=== PATIENT | female | born 1995 | race Hispanic/Latino ===

== ENCOUNTER 2020-07-17 17:55 | Inpatient (IN) | payer OTHER, SELFPAY ==
[2020-07-17] VITALS (26 sets, daily range): BP systolic 107–140; BP diastolic 49–99; PULSE 67–99; TEMP 36.9; BMI 30.4
--- NOTE | 2020-07-17 18:50 | LDADM ---
This patient, Frida Wright, was admitted to Labor/Delivery/Recovery 106 on 07/17/20 at 17:55. Plans for labor, pain management and were discussed with patient. Patient/family oriented to hospital policies and general routines including ID bracelet, bed and alarms, visiting hours, pain management, procedures, bathroom and other care routines, personal items, smoking policy, room service/diet and guest tray routines, security routines, and visiting hours. Patient/Family are encouraged to report perceived risks to care and to ask questions if they do not understand what they are told or what they should do. See OBIX for further documentation.
[2020-07-17 18:52] LABS: Basophils Percent Auto 0.2 % (0.2-1.2); Eosinophils Percent Auto 0.3 % (0-4.4); Hematocrit 35.4 % (37.0-47.0); Hemoglobin 11.3 g/dL (12.0-15.0); Immature Granulocyte Absolute 0.05 K/mm3 (0.00-0.031); Immature Granulocyte Percent A 0.4 % (0-0.5); Lymphocytes Percent Auto 16.4 % (18.3-44.2); Mean Corpuscular HGB Conc 31.9 g/dl (32-36); Mean Corpuscular Hemoglobin 26.2 pg (26-34); Mean Corpuscular Volume 81.9 fl (80-100); Mean Platelet Volume 11.5 fl (7.4-10.4); Monocytes Absolute Auto 1.1 K/mm3 (0.1-0.6); Monocytes Percent Auto 7.9 % (2.6-8.5); Neutrophils Absolute Auto 10.5 K/mm3 (1.3-6.7); Neutrophils Percent Auto 74.8 % (45.5-73.1); Platelet Count Result 270 k/mm3 (150-375); Red Blood Count 4.32 M/mm3 (4.2-5.4); Red Cell Distribution Width 14.1 % (11.5-14.5)
[2020-07-17 19:41] LABS: HIV 1/2 Ab P24 Ag Result Negative (Negative)
--- NOTE | 2020-07-17 20:42 | WPDANESEPP ---
Anes - Eval Pre Procedure Procedure: Labor epidural Date/Time: 07/17/20 20:42 Surgeon: dennis Preop Diagnosis: abd pain with contractions Pre Op Diagnosis: Leaking Patient Data Age: 25 Gender: F Height: 5 ft 3 in Weight: 78 kg Last Vital Signs Temp 98.5 F 07/17/20 19:07 Pulse 76 07/17/20 20:30 BP 117/75 07/17/20 20:30 Allergies Allergy/AdvReac Type Severity Reaction Status Date / Time No Known Allergies Allergy Mild Verified 07/17/20 08:19 Home Medications Medication Instructions Recorded Confirmed Type PNV cmb#95-ferrous fumarate-FA 1 tablet PO DAILY 07/13/20 07/13/20 History [] Laboratory Tests 07/17/20 07/17/20 07/17/20 18:42 18:42 18:42 WBC 14.0 K/mm3 H K/mm3 (4.5-10.0) RBC 4.32 M/mm3 M/mm3 (4.2-5.4) Hgb 11.3 g/dL L g/dL (12.0-15.0) Hct 35.4 % L % (37.0-47.0) MCV 81.9 fl fl (80-100) MCH 26.2 pg pg (26-34) MCHC 31.9 g/dl L g/dl (32-36) RDW 14.1 % % (11.5-14.5) Plt Count 270 k/mm3 k/mm3 (150-375) MPV 11.5 fl H fl (7.4-10.4) Immature Gran % (Auto) 0.4 % % (0-0.5) Neut % (Auto) 74.8 % H % (45.5-73.1) Lymph % (Auto) 16.4 % L % (18.3-44.2) [place] % (Auto) 7.9 % % (2.6-8.5) Eos % (Auto) 0.3 % % (0-4.4) Baso % (Auto) 0.2 % % (0.2-1.2) Lymph # (Auto) 2.30 K/mm3 K/mm3 (0.9-3.2) [place] # (Auto) 1.1 K/mm3 H K/mm3 (0.1-0.6) Eos # (Auto) 0.0 K/mm3 K/mm3 (0-0.3) Baso # (Auto) 0.0 K/mm3 K/mm3 (0.0-0.1) Abs Immat Gran (auto) 0.05 K/mm3 H K/mm3 (0.00-0.031) Absolute Neuts (auto) 10.5 K/mm3 H K/mm3 (1.3-6.7) Absolute Nucleated RBC 0.0 K/mm3 K/mm3 (0.0-0.012) Nucleated RBC % 0.0 % % (0.0-0.2) RPR Pending HIV 1&2 Ab/P24 Ag 4thGn Negative (Negative) Blood Type Antibody Screen 07/17/20 18:42 WBC RBC Hgb Hct MCV MCH MCHC RDW Plt Count MPV Immature Gran % (Auto) Neut % (Auto) Lymph % (Auto) [place] % (Auto) Eos % (Auto) Baso % (Auto) Lymph # (Auto) [place] # (Auto) Eos # (Auto) Baso # (Auto) Abs Immat Gran (auto) Absolute Neuts (auto) Absolute Nucleated RBC Nucleated RBC % RPR HIV 1&2 Ab/P24 Ag 4thGn Blood Type B Positive Antibody Screen Negative Patient hx anesthesia problems: none Family hx anesthesia problems: none PMFSH Past Medical History Medical History (Updated 07/17/20 @ 20:43 by Bernaridno Laughlin CRNA) Ovarian cyst Overweight (BMI 25.0-29.9) Family History Family History Grandparent Carcinoma of colon Thyroid disease Social History Social History Smoking status: Never smoker Alcohol intake: never Substance use: never Substance use type: does not use Spiritual care concerns: No Exam Day of Procedure 07/17/20 20:42 Patient weight: normal Neurological: alert and oriented
[2020-07-17] MEDS: LACTATED RINGERS 1,000 ML 125 ML IV CONT (21:40)
[2020-07-17] MEDS: OXYTOCIN 30 UNITS/NS 500 ML 30 UNITS/500 ML BAG IV CONT (21:40)
[2020-07-18] VITALS (91 sets, daily range): BP systolic 102–148; BP diastolic 57–96; PULSE 64–129; RESP 16; TEMP 36.6–37.6; O2SAT 96–100
[2020-07-18] MEDS: fentaNYL CITRATE INJ (*CRX) 100 MCG/2 ML VIAL IV PUSH (01:13)
[2020-07-18] MEDS: LACTATED RINGERS 1,000 ML 125 ML IV CONT ×2 (04:12→06:38)
[2020-07-18] MEDS: SODIUM CHLORIDE 0.9% IV 300 ML 600 ML I-UTERINE (04:22)
--- NOTE | 2020-07-18 09:27 | PM.OBPRVD ---
OB - Delivery Note Procedure Delivery date: 07/18/20 events: Labor Augmentation Intrapartal events: None Induction method: none Delivery augmentation: pitocin Delivery monitor: external FHT, external uterine and internal uterine Route of delivery: Laceration description: Perineal - 2nd Degree Delivery repair: vicryl (2-0) Specimen: No Estimated blood loss (mL): 143 Anesthesia type: Epidural Disposition: floor Baby Date of : 07/18/20 Time of : 09:12 Weeks of gestation at delivery: 38 Infant gender: Male Weight (pounds): 6 Weight (ounces): 9 presentation: vertex position: Right Occiput Anterior Placenta delivery description: Spontaneous cord vessel description: 3 Vessels and Clamped/Cut score one minute: 8 score five minutes: 9
[2020-07-18] MEDS: OXYTOCIN 30 UNITS/NS 500 ML 30 UNITS/500 ML BAG 125 UNITS IV CONT (09:43)
[2020-07-18] MEDS: IBUPROFEN 600 MG TABLET PO ×2 (11:36→18:59)
[2020-07-18] MEDS: BENZOCAINE 20% AER SPR (*SP) 56 GM CAN 1 SPRAY TOPICAL (11:53)
[2020-07-18] MEDS: WITCH HAZEL 40 PADS 1 PAD TOPICAL (11:53)
--- NOTE | 2020-07-18 13:05 | OBPPTRN ---
@ 1212 Patient transferred to post room #282 via W/C. Support person present. Oriented to unit, room, information board, rooming in, admission packet and security measures. Patient verbalizes understanding.
[2020-07-18] MEDS: TETANUS,DIPHTHERIA,AC PERTUSSIS ADULT (0.5 ML) BOOSTRIX IM (19:00)
[2020-07-19 04:45] LABS: Hematocrit 32.5 % (37.0-47.0); Hemoglobin 10.4 g/dL (12.0-15.0)
[2020-07-19] MEDS: IBUPROFEN 600 MG TABLET PO ×3 (04:47→19:49)
[2020-07-19 08:00] VITALS: BP 100/63; PULSE 84; RESP 16; RESP 17; TEMP 36.7; O2SAT 97
[2020-07-19] MEDS: MULTIVIT/MIN/PREN/FOL AC/IRON TABLET 1 TAB PO (08:13)
[2020-07-19] MEDS: DOCUSATE SODIUM 100 MG CAPSULE PO ×2 (08:13→16:52)
--- NOTE | 2020-07-19 09:30 | PM.OBPNVD ---
OB - PN: Subj Subjective Date/time seen: 07/19/20 09:30 Patient comments: no complaints, pain well controlled and other (Lochia similar to menses) [place] baby status: doing well OB - PN: Obj Data Labs CBC & Chem 7: 07/19/20 04:34 Labs: Laboratory Results - last 24 hr 07/19/20 04:34 Hgb 10.4 L Hct 32.5 L OB - PN A/P Plan day: 1 (s/p vaginal delivery, doing well) Plan: routine care Time Spent With Patient Time: Total time spent is greater than 50% in coordination of care (as documented) at patient's floor/unit and/or counseling patient: Exam Const: General: no acute distress GI: Inspection: other (Fundus firm and nontender at umbilicus) GI Palp: Yes Soft to palpation and No Tenderness to palpation present (GI) Extrem: General: no edema
--- NOTE | 2020-07-19 09:31 | PM.OBDSVD ---
DS: Admitting Diagnosis Admitting Diagnosis Admitting Diagnosis: Leaking DS: Discharge Diagnosis Discharge Diagnosis (1) : Code(s): Z34.90 - Encounter for supervision of normal , unspecified, unspecified trimester Status: Acute OB - DS: Summary OB Procedures : None OB Procedures Intrapartum: Spontaneous Vag Delivery OB Procedures: : None Peripartum Data Delivery Method: Natural Vaginal Laceration description: Perineal - 2nd Degree complications: none Status at Discharge Functional status at discharge: independent ambulation Overall status at discharge: patient is progressing back to baseline Time Spent with Patient Time attestation: Total time spent providing and/or coordinating discharge services: Time spent: Less than 30 minutes DS: Data Data Completed and Pending Labs on day of discharge: Labs from last 24 hours 07/19/20 04:34 Hgb 10.4 L Hct 32.5 L Discharge Plan Discharge Attending physician on discharge: Katherine Norwood Consulting providers: Percy Butterfield Discharging Clinician: Katherine Norwood Anticipated Discharge Date/Time: 07/20/20 11:00 Patient Disposition: Home, Self-Care Activity: may shower Diet: regular Patient Instructions: Antibiotic Form Stand Alone Forms: General Discharge Information Follow-up/Referrals: Katherine Norwood MD [Physician] - 4 Weeks Discharge Medications: New ibuprofen 600 mg Tablet 600 mg PO Q6H PRN (Reason: Cramping) Qty: 60 RF: 0 Continued PNV cmb#95-ferrous fumarate-FA [] 28 mg iron- 800 mcg Tablet 1 tablet PO DAILY RF: 0 Date of admission: 07/17/20 17:55 Primary Care Provider: PHYSICIAN,CREAM SEPARATOR OPERATOR Admitting Provider: Katherine Norwood Attending physician on admission: Katherine Norwood
--- NOTE | 2020-07-19 12:00 | PC.NURSE ---
PT introductions made and plan of care discussed per post , pain management, breast feeding, daily care activities. PT verbalized understanding of such care.
[2020-07-19] MEDS: SIMETHICONE 80 MG TAB.CHEW PO (12:46)
--- NOTE | 2020-07-19 15:07 | WPDANLDPN2 ---
Anes-Prog Note L&D Date/Time: 07/19/20 15:07 Comfortable throughout: labor and delivery Neuraxial method: epidural Epidural/Spinal procedure site: clean & non-tender Neuro status: Neuro function grossly intact. Cardiovascular status: normal Respiratory status: normal Airway patency: baseline Mental status: baseline Post-Op hydration status: normal Vital Signs: Last Vital Signs Temp 36.7 C 07/19/20 08:00 Pulse 84 07/19/20 08:00 Resp 17 07/19/20 08:00 BP 100/63 07/19/20 08:00 Pulse Ox 97 07/19/20 08:00 Pain score (VAS): 11/08 Post-procedural complaints: none Patient feedback: Patient satisfied with anesthetic care.
[2020-07-19] MEDS: ACETAMINOPHEN 325 MG TABLET 650 MG PO (16:52)
--- NOTE | 2020-07-19 18:20 | PC.NURSE ---
Patient viewed the discharge video Mother & Baby Care, The First Two Weeks . Patient was given the opportunity and encouraged to ask questions. Patient verbalized understanding of information shared and has been given the mother/baby guide for home reference.
[2020-07-19 20:24] VITALS: BP 118/80; PULSE 98; RESP 18; TEMP 36.8; O2SAT 99
--- NOTE | 2020-07-20 | PC.NURSE ---
Infant to nursery for assessment and weight. Mom would like to sleep and would like infant to remain in nursery until next feeding is due.
--- NOTE | 2020-07-20 02:40 | PC.NURSE ---
Infant returned to mother's room for next feeding.
[2020-07-20] MEDS: IBUPROFEN 600 MG TABLET PO (05:19)
[2020-07-20] MEDS: ACETAMINOPHEN 325 MG TABLET 650 MG PO (05:19)
[2020-07-20 07:15] VITALS: BP 129/82; PULSE 85; RESP 14; TEMP 36.5; O2SAT 98
--- NOTE | 2020-07-20 07:30 | P.PNOB_ITS ---
OB - PN: Subj Subjective Date/time seen: 07/20/20 07:30 Patient comments: no complaints, pain well controlled and other (Lochia similar to menses) [place] baby status: doing well OB - PN: Obj Data Labs CBC & Chem 7: 07/19/20 04:34 OB - PN A/P Plan day: 2 (s/p vaginal delivery, doing well) Plan: routine care, discharge home and other (Follow up in office in 4 weeks) Time Spent With Patient Time: Total time spent is greater than 50% in coordination of care (as documented) at patient's floor/unit and/or counseling patient: Exam Const: General: no acute distress GI: Inspection: other (Fundus firm and nontender below umbilicus) GI Palp: Yes Soft to palpation and No Tenderness to palpation present (GI) Extrem: General: no edema
--- NOTE | 2020-07-20 09:35 | PC.NURSE ---
Consulted with patient, mother reports infant is eagerly feeding without difficulties or discomfort. Observed mother latching using cross cradle, holding breast and guided asymmetrical latch one. was able to latch correctly. nursed eagerly, with steady draws and frequent swallowing noted. Reviewed signs of a correct latch, effective nursing and suck swallow ratio. Infant was able to maintain latch without discomfort to mother. Nipple care reviewed. Reviewed infant feeding cues, frequencies, duration of feedings, feeding elimination flow sheet, and signs of adequate intake. Mother is feeding as required and waking to feed if needed. has had at least 8 effective feedings in the past 24 hours, and is currently meeting outcomes for weight, output, jaundice and feeding frequencies. Mother states she feels confident to continue effective at home. Reviewed transition to breast milk, signs of adequate intake, and engorgement/relief. Instructed to call ICP if intake/output less than required. Reviewed regular medications mother is taking. Information provided per Dilcia. Reviewed community resources on the [facility] website and in the Mom/Baby guide. Information on outpatient services provided. Mother has no further questions at this time.
[2020-07-20] MEDS: MULTIVIT/MIN/PREN/FOL AC/IRON TABLET 1 TAB PO (09:52)
[2020-07-20] MEDS: DOCUSATE SODIUM 100 MG CAPSULE PO (09:52)
[2020-07-20 11:11] LABS: Rapid Plasma Reagin Non-Reactive (NonReactive)
[2020-07-22 12:36] VITALS: BP 136/83; PULSE 98; RESP 20; O2SAT 100
== END 2020-07-20 12:39 | disposition home or self-care (01) | DRG 560 ==
LOC: ANHLDR 19:01 → ANHOB2 07-18 12:14
PROVIDERS: Admitting Provider Obstetrics & Gynecology; Visit Provider Obstetrics & Gynecology
DX: O76 Abnormality in fetal heart rate and rhythm complicating labor and delivery (principal); O70.1 Second degree perineal laceration during delivery; Z3A.38 38 weeks gestation of pregnancy; Z37.0 Single live birth; Z23 Encounter for immunization
CPT/HCPCS: 36415; 85014; 85018; 85025; 86592; 86703; 86850; 86900; 86901; 90471; 90686; 90715; A9270; G0008; G0432; J2590; J2795; J3010; J7030; J7120

== ENCOUNTER 2022-01-24 05:00 | Inpatient (IN) | payer OTHER, SELFPAY ==
[2022-01-24] VITALS (89 sets, daily range): BP systolic 70–188; BP diastolic 39–149; PULSE 68–178; RESP 16–18; TEMP 36.5–36.9; O2SAT 97–100; BMI 33.5
--- OUTSIDE RECORDS SUMMARY | 2022-01-24 05:04 | XMS_ITS | Encounter Summary ---
:1995 Author Reason for Visit OB visit Assessment and Plan 1. Gestational diabetes mellitus Discussion Note: None recorded.Patient educational handouts: No information available. Plan of Care Reminders Provider Appointments Nst 01/25/2022 Nst, , EQ UIP 9:15AM ? Nst 01/28/2022 Nst, , EQUI P 9:15AM ? Ob Routine 01/28/2022 Jumana Hansen, 9:45AM CNM ? 3Hr on or around Angela There se Glucose 03/13/2022 MD [facility] None ? ? recorded. Referral None ? ? recorded. Procedures None ? ? recorded. Surgeries None ? ? recorded. Imaging None ? ? recorded. Medications Name Start Date ? ? FreeStyle Lancets 28 gauge ? TEST FOUR TIMES DAILY AND 1 HOUR AFTER MEALS FreeStyle Lite Meter kit ? TEST FOUR TIMES DAILY AND 1 HOUR AFTER MEALS Humulin N NPH U-100 Insulin (isophane susp) 100 unit/m L subcutaneous ? Inject 6 units by subcutaneous route at bedtime insulin syringe U-100 with needle 1 mL 29 gauge x 7/16 ? DIRECTED OneTouch Delica Plus Lancet 33 gauge ? OneTouch Verio Flex Meter ? OneTouch Verio test strips ? USE FOUR TIMES DAILY FASTING BREAKFAST LUNCH DINNER ? Medications A
--- OUTSIDE RECORDS SUMMARY | 2022-01-24 05:04 | XMS_ITS | Encounter Summary ---
:1995 Author Reason for Visit None recorded. Assessment and Plan 1. Gestational diabetes mellitus , class A>1< ? non-stress test Discussion Note: None recorded.Patient educational handouts: No [...] recorded. Surgeries None ? ? recorded. Imaging Non-stress 01/21/2022 Gayle wasserman Test Medications Name Start Date ? ? FreeStyle [...] test strips ? USE FOUR TIMES DAILY FASTI
--- OUTSIDE RECORDS SUMMARY | 2022-01-24 05:04 | XMS_ITS | Encounter Summary ---
:1995 Author Reason for Visit None recorded. Assessment and Plan 1. Poor growth affecting m anagement ? US, obstetric, follow-up ? US, obstetric, biophysical profile + non-stress test Discussion Note: None recorded.Patient educational handouts: No information available. Plan of Care Reminders Provider Appointments Nst 01/25/2022 Nst, , EQ UIP 9:15AM ? Nst 01/28/2022 Nst, , EQUI P 9:15AM ? Ob Routine 01/28/2022 Jumana E 9:45AM SULEIMAN Hansen ? 3Hr Glucose on or around Angela Vandana 03/13/2022 MD [facility] None ? ? recorded. Referral None ? ? recorded. Procedures None ? ? recorded. Surgeries None ? ? recorded. Imaging US, 01/21/2022 [facility], Follow-up ? US, 01/21/2022 [facility], Biophysical Profile + Non-stress Test Medications Name Start Date ? ? FreeStyle Lancets 28 gauge ? TEST FOUR TIMES DAILY AND 1 HOUR AFTER MEALS FreeStyle Lite Meter kit ? TEST FOUR TIMES DAILY AND 1 HOUR AFTER MEALS
--- OUTSIDE RECORDS SUMMARY | 2022-01-24 05:04 | XMS_ITS | Encounter Summary ---
[...] Surgeries None ? ? recorded. Imaging Non-stress 01/18/2022 Gayle wasserman Test Medications Name Start Date [...]
--- OUTSIDE RECORDS SUMMARY | 2022-01-24 05:04 | XMS_ITS ---
:1995 Author Care Team Providers Name Role Phone Agnela Delgadillo Primary Care Provider Unavailable Allergies Code Code System Name Reaction Severity Status Onset NKDA ? Medications Name Status Start Date Stop Date ? ? FreeStyle Lancets 28 gauge Active ? Not a vailable TEST FOUR TIMES DAILY AND 1 HOUR AFTER MEALS FreeStyle Lite Meter kit Active ? Not syed ilable TEST FOUR TIMES DAILY AND 1 HOUR AFTER MEALS Humulin N NPH U-100 Insulin Active ? Not available (isophane susp) 100 unit/mL subcutaneous ibuprofen 600 mg tablet Completed ? 06/30/20 21 TK 1 T PO Q 6 H PRF CRAMPING insulin syringe U-100 with needle 1 mL 29 gauge x 7/16 Active ? Not available DIRECTED Lo Loestrin Fe 1 mg-10 mcg (24)/10 mcg (2) tablet Completed 07/19/2012 01/28/2020 take 1 tablet by oral route every day norethindrone (contraceptive) 0.35 mg tablet Completed ? 06/30/2021 TK 1 T PO D OneTouch Delica Plus Lancet 33 Active ? N ot available gauge OneTouch Verio Flex Meter Active ? Not av ailable OneTouch Verio test strips Active ? Not a vailable USE FOUR TIMES DAILY FASTING BREAKFAST LUNCH DINNER Active ? Not available Problems Name Status Onset Date Source ? Cyst of Ovary Unknown 06/27/2012 History Abdominal Pain Unknown 06/27/2012 History Female Genital Organ Symptoms Unknown
--- OUTSIDE RECORDS SUMMARY | 2022-01-24 05:05 | XMS_ITS | Encounter Summary ---
:1995 Author Reason for Visit None recorded. Assessment and Plan 1. Gestational diabetes mellitus , class A>2< ? non-stress test Discussion Note: None recorded.Patient [...] Surgeries None ? ? recorded. Imaging Non-stress 12/31/2021 Gayle wasserman Test Medications Name Start Date [...] test strips ? USE FOUR TIMES DAILY FASTIN
--- OUTSIDE RECORDS SUMMARY | 2022-01-24 05:05 | XMS_ITS | Encounter Summary ---
:1995 Author Reason for Visit None recorded. Assessment and Plan Assessment Note Insulin Teaching 1. Gestational diabetes mellitus , class A>2< Insulin teaching completed. Pt instructed on administering insulin and insulin administration sites. Pt instruc jacqueline on importance of cleaning the insulin vial and insulin administration site. Pt instructed on drawing up insulin and how to identify the amount in the insulin syrin ge. Pt instructed on how to administer insulin. Cleaning and drawing up insulin demonstrated and return demonstration completed. Pt instructed to begin NPH in sulin 6 units at HS. Pt verbalized understanding and rx sent. Chasity murrieta RN Discussion Note: None recorded.Patient educational handouts: No [...]
--- OUTSIDE RECORDS SUMMARY | 2022-01-24 05:05 | XMS_ITS | Encounter Summary ---
[...] DAILY FASTING BREAKFAST LUNCH DINNER ? Medications Ad
--- OUTSIDE RECORDS SUMMARY | 2022-01-24 05:05 | XMS_ITS | Encounter Summary ---
[...] Surgeries None ? ? recorded. Imaging Non-stress 01/07/2022 Gayle wasserman Test Medications Name Start Date [...]
--- OUTSIDE RECORDS SUMMARY | 2022-01-24 05:05 | XMS_ITS | Encounter Summary ---
[...] Surgeries None ? ? recorded. Imaging Non-stress 12/24/2021 Gayle wasserman Test Medications Name Start Date [...] test strips ? USE FOUR TIMES DAILY FAST
--- OUTSIDE RECORDS SUMMARY | 2022-01-24 05:05 | XMS_ITS | Encounter Summary ---
[...] Surgeries None ? ? recorded. Imaging Non-stress 12/17/2021 Gayle wasserman Test Medications Name Start Date [...]
--- OUTSIDE RECORDS SUMMARY | 2022-01-24 05:05 | XMS_ITS | Encounter Summary ---
:1995 Author Reason for Visit NST [id number] EDC 01/30/2022 LMP 04/19/2021 Assessment and Plan 1. Gestational diabetes mellitus [...] Surgeries None ? ? recorded. Imaging Non-stress 12/21/2021 Gayle wasserman Test Medications Name Start Date [...]
--- OUTSIDE RECORDS SUMMARY | 2022-01-24 05:05 | XMS_ITS | Encounter Summary ---
:1995 Author Reason for Visit NST Assessment and Plan 1. Gestational diabetes mellitus [...] Surgeries None ? ? recorded. Imaging Non-stress 01/04/2022 Gayle wasserman Test Medications Name Start Date [...]
--- OUTSIDE RECORDS SUMMARY | 2022-01-24 05:05 | XMS_ITS | Encounter Summary ---
[...] Surgeries None ? ? recorded. Imaging Non-stress 01/14/2022 Gayle wasserman Test Medications Name Start Date [...]
--- OUTSIDE RECORDS SUMMARY | 2022-01-24 05:05 | XMS_ITS | Encounter Summary ---
:1995 Author Reason for Visit OB visit Assessment and Plan 1. Gestational diabetes mellitus 2. growth restriction Discussion Note: None recorded.Patient educational handouts: No [...]
--- OUTSIDE RECORDS SUMMARY | 2022-01-24 05:05 | XMS_ITS | Encounter Summary ---
:1995 Author Reason for Visit NST [id number] EDC 01/30/2022 LMP 04/19/2021 Assessment and Plan [...] Surgeries None ? ? recorded. Imaging Non-stress 12/28/2021 Gayle wasserman Test Medications Name Start Date [...] Meter ? OneTouch Verio test strips ? US
--- OUTSIDE RECORDS SUMMARY | 2022-01-24 05:05 | XMS_ITS | Encounter Summary ---
[...] Surgeries None ? ? recorded. Imaging Non-stress 01/11/2022 Gayle wasserman Test Medications Name Start Date [...]
--- OUTSIDE RECORDS SUMMARY | 2022-01-24 05:05 | XMS_ITS | Encounter Summary ---
[...] Surgeries None ? ? recorded. Imaging Non-stress 12/14/2021 Gayle wasserman Test Medications Name Start Date [...]
--- OUTSIDE RECORDS SUMMARY | 2022-01-24 05:05 | XMS_ITS | Encounter Summary ---
:1995 Author Reason for Visit None recorded. Assessment and Plan 1. Marginal insertion of umbilic al cord ? US, obstetric, follow-up Discussion Note: None recorded.Patient educational handouts: No [...] Surgeries None ? ? recorded. Imaging US, 12/24/2021 [facility], Follow-up Medications Name Start Date ? ? FreeStyle [...] OneTouch Verio Flex Meter ? OneTouch Verio t
--- OUTSIDE RECORDS SUMMARY | 2022-01-24 05:05 | XMS_ITS | Encounter Summary ---
[...] Surgeries None ? ? recorded. Imaging Non-stress 12/10/2021 Gayle wasserman Test Medications Name Start Date [...]
--- OUTSIDE RECORDS SUMMARY | 2022-01-24 05:06 | XMS_ITS | Encounter Summary ---
[...] Surgeries None ? ? recorded. Imaging Non-stress 12/07/2021 Gayle wasserman Test Medications Name Start Date [...]
--- OUTSIDE RECORDS SUMMARY | 2022-01-24 05:06 | XMS_ITS | Encounter Summary ---
:1995 Author Reason for Visit OB visit Assessment and Plan 1. Low lying placenta 2. Routine care Discussion Note: None recorded.Patient educational handouts: No [...]
--- OUTSIDE RECORDS SUMMARY | 2022-01-24 05:06 | XMS_ITS | Encounter Summary ---
:1995 Author Reason for Visit None recorded. Assessment and Plan 1. AND/OR placental disord er affecting management of mother ? US, obstetric, follow-up Discussion Note: None [...] Surgeries None ? ? recorded. Imaging US, 11/24/2021 [facility], Follow-up Medications Name Start Date ? [...]
--- OUTSIDE RECORDS SUMMARY | 2022-01-24 05:06 | XMS_ITS | Encounter Summary ---
:1995 Author Reason for Visit OB visit Assessment and Plan 1. Routine care 2. Gestational diabetes mellitus Discussion Note: None recorded.Patient [...]
--- OUTSIDE RECORDS SUMMARY | 2022-01-24 05:06 | XMS_ITS | Encounter Summary ---
:1995 Author Reason for Visit OB visit 29w3d Assessment and Plan 1. Gestational diabetes mellitus GDM diet teaching. Discussed c arb counting, meal planning, bs logging, and handout given. Discussed risks to of unc ontrolled GDM to mom and baby. RTC in 1 week to evaluate bs. testing to be scheduled. Discussion Note: None recorded.Patient educational handouts: No [...]
--- OUTSIDE RECORDS SUMMARY | 2022-01-24 05:06 | XMS_ITS | Encounter Summary ---
:1995 Author Reason for Visit OB visit Assessment and Plan 1. Low lying placenta 2. growth restriction 3. Routine care Discussion Note: None recorded.Patient educational [...]
[2022-01-24] MEDS: LACTATED RINGERS 1,000 ML 125 ML IV CONT ×2 (05:28→09:05)
[2022-01-24 05:32] LABS: Basophils Absolute Auto 0.1 K/mm3 (0.0-0.1); Basophils Percent Auto 0.4 % (0.2-1.2); Eosinophils Absolute Auto 0.1 K/mm3 (0-0.3); Eosinophils Percent Auto 0.6 % (0-4.4); Hematocrit 36.5 % (37.0-47.0); Hemoglobin 10.9 g/dL (12.0-15.0); Immature Granulocyte Absolute 0.04 K/mm3 (0.00-0.031); Immature Granulocyte Percent A 0.4 % (0-0.5); Lymphocytes Absolute Auto 2.88 K/mm3 (0.9-3.2); Lymphocytes Percent Auto 25.8 % (18.3-44.2); Mean Corpuscular HGB Conc 29.9 g/dl (32-36); Mean Corpuscular Hemoglobin 23.1 pg (26-34); Mean Corpuscular Volume 77.5 fl (80-100); Mean Platelet Volume 10.4 fl (7.4-10.4); Monocytes Absolute Auto 1.2 K/mm3 (0.1-0.6); Monocytes Percent Auto 10.7 % (2.6-8.5); Neutrophils Absolute Auto 6.9 K/mm3 (1.3-6.7); Neutrophils Percent Auto 62.1 % (45.5-73.1); Nucleated Red Blood Cells Perc 0.2 % (0.0-0.2); Platelet Count Result 260 k/mm3 (150-375); Red Blood Count 4.71 M/mm3 (4.2-5.4); Red Cell Distribution Width 18.6 % (11.5-14.5); White Blood Count 11.2 K/mm3 (4.5-10.0)
[2022-01-24] MEDS: OXYTOCIN 30 UNITS/NS 500 ML 30 UNITS/500 ML BAG IV CONT (05:46)
[2022-01-24 06:59] LABS: Glucose Point of Care 132 mg/dl (65-105)
--- NOTE | 2022-01-24 07:10 | LDADM ---
This patient, Frida Wright, was admitted to Labor/Delivery/Recovery 102 on 01/24/22 at 05:00. Plans for labor, pain management and were discussed with patient. Patient/family oriented to hospital policies and general routines including ID bracelet, bed and alarms, visiting hours, pain management, procedures, bathroom and other care routines, personal items, smoking policy, room service/diet and guest tray routines, security routines, and visiting hours. Patient/Family are encouraged to report perceived risks to care and to ask questions if they do not understand what they are told or what they should do. See OBIX for further documentation.
--- NOTE | 2022-01-24 07:41 | PM.IMHP ---
H&P: HPI History of Present Illness Date/Time: 01/24/22 07:41 Chief Complaint: induction of labor Narrative: Frida is a 27yo at 39.1 for IOL for GDMA2, on insulin, well controlled. also complicated by anemia. Review of Systems Review of Systems: All systems reviewed & are unremarkable except as noted in HPI and below PMFSH Past Medical History Medical History Ovarian cyst Overweight (BMI 25.0-29.9) Vaginal delivery 07/18/20 Full term male 6lbs 9oz Family History Family History Grandparent Carcinoma of colon Thyroid disease Social History Social History Smoking status: Never smoker Alcohol intake: never Substance use: never Substance use type: does not use Spiritual care concerns: No Meds Home Medications and Allergies Home Medications Medication Instructions Recorded Confirmed Type PNV cmb#95-ferrous fumarate-FA 1 tablet PO DAILY 07/13/20 12/31/21 History [] ferrous sulfate [Iron (ferrous 325 mg PO DAILY 12/31/21 12/31/21 History sulfate)] insulin NPH isoph U-100 human 16 unit SUBCUT HS 12/31/21 12/31/21 History [Humulin N NPH U-100 Insulin] Allergies Allergy/AdvReac Type Severity Reaction Status Date / Time No Known Allergies Allergy Mild Verified 08/14/20 10:17 Vital Signs Vital Signs - 24 hr 01/24/22 05:22 01/24/22 05:24 01/24/22 05:26 Pulse Rate 92 105 H 96 Blood Pressure 70/55 L 119/82 119/54 L 01/24/22 05:28 01/24/22 05:30 01/24/22 05:34 Pulse Rate 90 79 88 Blood Pressure 85/39 L 116/73 111/65 01/24/22 05:37 01/24/22 05:40 01/24/22 05:43 Pulse Rate 85 79 80 Blood Pressure 114/64 114/68 114/70 01/24/22 05:46 01/24/22 05:49 01/24/22 06:01 Pulse Rate 85 83 68 Blood Pressure 97/66 L 109/60 01/24/22 06:04 01/24/22 06:16 01/24/22 06:31 Pulse Rate 82 84 78 Blood Pressure 117/56 L 95/59 L 111/61 01/24/22 06:46 01/24/22 07:01 01/24/22 07:16 Pulse Rate 74 88 82 Blood Pressure 115/66 115/71 111/65 01/24/22 07:31 Pulse Rate 87 Blood Pressure 118/71 Exam Const: General: no acute distress Resp: Effort & Inspection: normal respiratory effort Auscultation: clear to auscultation bilaterally Cardio: Rate: regular rate Rhythm: regular rhythm GI: GI Palp: Yes Soft to palpation Extrem: General: normal to inspection H&P: Results Labs Labs: Short CBC 01/24/22 Range/Units 05:22 WBC 11.2 H (4.5-10.0) K/mm3 Hgb 10.9 L (12.0-15.0) g/dL Hct 36.5 L (37.0-47.0) % Plt Count 260 (150-375) k/mm3 Assessment and Plan Additional Plan Here for induction of labor-for GDMA2 pitocin per protocol GBS neg AROM clear /-3 FHT category 1 First BS borderline after cereal. Will continue to monitor and limit carbs from here on out.
[2022-01-24 08:10] LABS: Glucose Point of Care 124 mg/dl (65-105)
[2022-01-24 10:20] LABS: Glucose Point of Care 78 mg/dl (65-105)
--- NOTE | 2022-01-24 12:02 | PM.OBPRVD ---
OB - Delivery Note Procedure Delivery date: 01/24/22 Procedure: Events: Gestational Diabetes Intrapartal Events: Decelerations Induction method: AROM and Per Pitocin Protocol Delivery monitor: External FHT and External Uterine Route of delivery: Laceration Description: Perineal - 2nd Degree Delivery repair: vicryl Quantitative Blood Loss (ml): 670 (due to an arterial bleeder at second degree laceration that was difficult to control.) Anesthesia type: Epidural Disposition: Floor Narrative: With adequate expulsive efforts by the mother, the baby's head was delivered OA. The baby's anterior shoulder was delivered under the pubic symphysis without difficulty. The posterior shoulder and the rest of the baby delivered without difficulty. The infant was placed on the mothers chest and suctioned and stimulated. The cord was clamped and cut after 60 seconds. Mother and baby both stable. [place] Baby Date of : 01/24/22 Time of : 11:31 Weeks of gestation at delivery: 39 gender: Female Weight (pounds): 6 Weight (ounces): 13 presentation: vertex Placenta delivery description: Spontaneous Cord Vessel Description: 3 Vessels, Nuchal Cord (x2) and Delayed Cord Clamping score one minute: 8 score five minutes: 9
[2022-01-24 13:00] LABS: Rapid Plasma Reagin Non-Reactive (NonReactive)
[2022-01-24] MEDS: OXYTOCIN 30 UNITS/NS 500 ML 30 UNITS/500 ML BAG 125 UNITS IV CONT (14:01)
[2022-01-24] MEDS: WITCH HAZEL 40 PADS 1 PAD TOPICAL (14:58)
[2022-01-24] MEDS: BENZOCAINE 20% AER SPR (*SP) 56 GM CAN 1 SPRAY TOPICAL (14:58)
[2022-01-24] MEDS: IBUPROFEN 600 MG TABLET PO ×2 (15:23→22:01)
[2022-01-25 00:15] VITALS: BP 126/70; PULSE 82; RESP 18; TEMP 36.4; O2SAT 98
[2022-01-25] MEDS: ACETAMINOPHEN 325 MG TABLET 650 MG PO (00:51)
--- NOTE | 2022-01-25 02:25 | PC.NURSE ---
Patient transferred to post room #287 via wheelchair. Support person present. Oriented to unit, room, information board, rooming in, admission packet and security measures. Patient verbalizes understanding.
[2022-01-25 04:00] VITALS: BP 101/60; PULSE 82; RESP 16; TEMP 36.2; O2SAT 98
[2022-01-25 06:09] LABS: Hematocrit 30.2 % (37.0-47.0); Hemoglobin 9.2 g/dL (12.0-15.0)
[2022-01-25] MEDS: DOCUSATE SODIUM 100 MG CAPSULE PO (07:23)
[2022-01-25] MEDS: IBUPROFEN 600 MG TABLET PO (07:24)
[2022-01-25] MEDS: MULTIVIT/MIN/PREN/FOL AC/IRON TABLET 1 TAB PO (07:24)
--- NOTE | 2022-01-25 07:37 | P.PNOB_ITS ---
OB - PN: Subj Subjective Date/time seen: 01/25/22 07:37 Patient comments: no complaints and pain well controlled baby status: doing well and nursing well [place] feeding status: exclusively breast feeding Narrative: would like DC home today OB - PN: Obj Data Labs CBC & Chem 7: 01/25/22 05:33 Labs: Laboratory Results - last 24 hr 01/24/22 01/24/22 01/24/22 05:22 07:48 10:15 Hgb Hct POC Capillary Glucose 124 H 78 RPR Non-reactive 01/25/22 05:33 Hgb 9.2 L Hct 30.2 L POC Capillary Glucose RPR OB - PN A/P Assessment and Plan (1) , delivered: Code(s): O80 - Encounter for full-term uncomplicated delivery Status: Acute Plan day: 1 Plan: routine care and discharge home Comments: DC instructions given 2 hr glucose at 6-8 weeks. Time Spent With Patient Time: Total time spent is greater than 50% in coordination of care (as documented) at patient's floor/unit and/or counseling patient: Time with patient: less than 15 minutes Exam Narrative: NAD abdomen soft, nontender, fundus firm below the umbilicus Extremities nontender, 1+ edema
--- NOTE | 2022-01-25 07:40 | P.DS_ITS ---
DS: Admitting Diagnosis Discharge Date 01/25/22 Admitting Diagnosis IUP 39w, GDMA2 DS: Discharge Diagnosis Discharge Diagnosis (1) , delivered: Code(s): O80 - Encounter for full-term uncomplicated delivery Status: Acute OB - DS: Summary Hospital Course Hospital Course: Frida presented for IOL for GDMA2 and had an uncomplicated vaginal delivery and post course. OB Procedures : NST and Ultrasound OB Procedures Intrapartum: Spontaneous Vag Delivery OB Procedures: : None Peripartum Data Delivery Method: Natural Vaginal Laceration Description: Perineal - 2nd Degree complications: none Status at Discharge Functional status at discharge: independent ambulation Time Spent with Patient Time attestation: Total time spent providing and/or coordinating discharge services: Exam Narrative: NAD abdomen soft, appropriately tender Ext non tender, 1+ edema DS: Data Data Completed and Pending Labs on day of discharge: Labs from last 24 hours 01/25/22 01/24/22 01/24/22 05:33 10:15 07:48 Hgb 9.2 L Hct 30.2 L POC Capillary Glucose 78 124 H RPR 01/24/22 05:22 Hgb Hct POC Capillary Glucose RPR Non-reactive Discharge Plan Discharge Attending physician on discharge: Angela Delgadillo Discharging Clinician: Angela Delgadillo Anticipated Discharge Date/Time: 01/25/22 14:00 Patient Disposition: Home, Self-Care Activity: pelvic rest Diet: regular Discharge Instructions: ibuprofen 600mg every 6 hours as needed Patient Instructions: Antibiotic Form Stand Alone Forms: General Discharge Information Follow-up/Referrals: Angela Delgadillo MD [Physician] - 4 Weeks Discharge Medications: Continued PNV cmb#95-ferrous fumarate-FA [] 28 mg iron- 800 mcg Tablet 1 tablet PO DAILY RF: 0 ferrous sulfate [Iron (ferrous sulfate)] 325 mg (65 mg iron) Tablet 325 mg PO DAILY RF: 0 Discontinued Humulin N NPH U-100 Insulin 100 unit/mL Suspension 16 unit SUBCUT HS RF: 0 Date of admission: 01/24/22 05:00 Primary Care Provider: PHYSICIAN,LAMINATING MACHINE OPERATOR Admitting Provider: Angela Delgadillo Attending physician on admission: Angela Delgadillo Condition: Stable
[2022-01-25 07:55] VITALS: BP 123/76; PULSE 93; RESP 18; TEMP 36.9; O2SAT 98
--- NOTE | 2022-01-25 09:57 | WPDANLDPN2 ---
Anes-Prog Note L&D Date/Time: 01/25/22 09:57 Comfortable throughout: labor and delivery Neuraxial method: epidural Epidural/Spinal procedure site: clean & non-tender Neuro status: Neuro function grossly intact. Cardiovascular status: normal Respiratory status: normal Airway patency: baseline Mental status: baseline Post-Op hydration status: normal Vital Signs: Last Vital Signs Temp 98.4 F 01/25/22 07:55 Pulse 93 01/25/22 07:55 Resp 18 01/25/22 07:55 BP 123/76 01/25/22 07:55 Pulse Ox 98 01/25/22 07:55 Pain score (VAS): 0 I/O: Intake & Output 01/24/22 01/25/22 01/25/22 23:59 07:59 15:59 Intake Total 240 Balance 240 Post-procedural complaints: none Patient feedback: Patient satisfied with anesthetic care.
--- NOTE | 2022-01-25 15:36 | PC.NURSE ---
1520 discharge disposition charted for Emery Elliott RN.
[2022-01-26 08:57] VITALS: BP 131/80; PULSE 92; RESP 16; TEMP 36.8; O2SAT 99
== END 2022-01-25 15:20 | disposition home or self-care (01) | DRG 560 ==
LOC: ANHLDR 05:03 → ANHOB2 14:25
PROVIDERS: Admitting Provider Obstetrics & Gynecology; Visit Provider Obstetrics & Gynecology
DX: O24.424 Gestational diabetes mellitus in childbirth, insulin controlled (principal); Z37.0 Single live birth; Z3A.39 39 weeks gestation of pregnancy; O70.1 Second degree perineal laceration during delivery; O36.8330 Maternal care for abnormalities of the fetal heart rate or rhythm, third trimester, not applicable or unspecified; Z23 Encounter for immunization; O69.81X0 Labor and delivery complicated by cord around neck, without compression, not applicable or unspecified; O99.02 Anemia complicating childbirth; D64.9 Anemia, unspecified
CPT/HCPCS: 36415; 82948; 85014; 85018; 85025; 86592; 86850; 86900; 86901; 90471; 90653; A9270; G0008; J2590; J2795; J7120

== ENCOUNTER 2022-03-08 16:11 | Emergency (ER) | payer OTHER, SELFPAY ==
[2022-03-08] VITALS (8 sets, daily range): BP systolic 109–150; BP diastolic 67–85; PULSE 94–126; RESP 18–25; TEMP 37.7; O2SAT 98–100
--- NOTE | ~2022-03-08 | CT_ITS ---
EXAMINATION: CT abdomen pelvis w con DATE: 03/08/2022 17:57 INDICATION: epigastric, RLQ pain, N/V TECHNIQUE: Computed tomography (CT) of the abdomen and pelvis was performed with 100 mL Omnipaque-300 intravenous contrast. Automated exposure control and iterative reconstruction technique were employe d. The dose-length product was 593.85 mGy-cm. COMPARISON: None FINDINGS: Lower thorax: Unremarkable Liver: Normal. Biliary/Gallbladder: No bile duct dilation. Spleen: Normal. Pancreas: No mass or duct dilation. Adrenals:No mass. Kidneys: No mass, stone, or hydronephrosis. GI tract: No small or large bowel dilation. Normal appendix. Mild distal esophageal and antral wall e adriana. Mesentery/Peritoneum: No ascites, mass, or free air. Retroperitoneum: No mass. Pelvis: Pelvic organs are within normal limits. Soft Tissues: Soft tissues and body wall unremarkable. Bones: No acute osseous finding. IMPRESSION: CT findings as can be seen with esophagitis/gastritis in the appropriate clinical context. Otherwise no acute abdominopelvic process. Reviewed, dictated and finalized at location K. IMPRESSION: CT findings as can be seen with esophagitis/gastritis in the appropriate clinic al context. Otherwise no acute abdominopelvic process.
[2022-03-08 16:33] LABS: Basophils Percent Auto 0.2 % (0.2-1.2); Eosinophils Percent Auto 0.2 % (0-4.4); Hematocrit 40.9 % (37.0-47.0); Hemoglobin 11.9 g/dL (12.0-15.0); Immature Granulocyte Absolute 0.05 K/mm3 (0.00-0.031); Immature Granulocyte Percent A 0.4 % (0-0.5); Lymphocytes Absolute Auto 0.97 K/mm3 (0.9-3.2); Lymphocytes Percent Auto 7.5 % (18.3-44.2); Mean Corpuscular HGB Conc 29.1 g/dl (32-36); Mean Corpuscular Hemoglobin 22.5 pg (26-34); Mean Corpuscular Volume 77.2 fl (80-100); Mean Platelet Volume 10.8 fl (7.4-10.4); Monocytes Absolute Auto 0.8 K/mm3 (0.1-0.6); Monocytes Percent Auto 5.8 % (2.6-8.5); Neutrophils Absolute Auto 11.2 K/mm3 (1.3-6.7); Neutrophils Percent Auto 85.9 % (45.5-73.1); Platelet Count Result 247 k/mm3 (150-375); Red Cell Distribution Width 18.6 % (11.5-14.5)
[2022-03-08 16:46] LABS: Alanine Aminotransferase 34 U/L (6-35); Albumin Level 4.5 g/dL (3.5-5.1); Alkaline Phosphatase 153 U/L (38-126); Anion Gap 10 mmol/L (8-16); Aspartate Amino Transferase 32 U/L (14-36); Bilirubin,Total 0.5 mg/dL (0.2-1.3); Blood Urea Nitrogen 14 mg/dL (7-17); Calcium 8.7 mg/dL (8.4-10.2); Carbon Dioxide 24 mmol/L (22-30); Chloride 106 mmol/L (98-107); Estimated CRCL calculation 103 ml/min; Estimated Glomerular Filt Rate > 60; Glucose 103 mg/dL (65-110); Lipase 188 U/L (23-300); Potassium 3.9 mmol/L (3.4-5.0); Sodium 140 mmol/L (137-145)
--- NOTE | 2022-03-08 17:18 | ED.NAVMDI ---
HPI - Nausea/Vomiting/Diarrhea General Chief complaint: Nausea/Vomiting/Diarrhea <Qiana Crooks PA-C - Last Filed: 03/08/22 19:59> Stated complaint: N/V <KEENAN Mendez Last Filed: 03/08/22 19:59> Time Seen by Provider: 03/08/22 16:59 <KEENAN Mendez Last Filed: 03/08/22 19:59> Source: patient <KEENAN Mendez Last Filed: 03/08/22 19:59> Mode of arrival: ambulatory <KEENAN Mendez Last Filed: 03/08/22 19:59> Limitations: no limitations <KEENAN Mendez Last Filed: 03/08/22 19:59> History of Present Illness HPI Narrative: Patient is a 27-year-old female who presents the ED with report of nausea, vomiting, diarrhea. Patient reports she first developed diarrhea last night. She denies having any blood in the stool. She also reported having associated upper and bilateral lower abdominal pain with the bowel movements. Today around 10 AM, she began having nausea and vomiting. She has not been able to keep any food or fluid down since then. She did report having a fever earlier today and took Tylenol for this around 2:30 PM. Patient denies any urinary symptoms, blood in the vomit, cough or cold symptoms, back pain. <KEENAN Mendez Last Filed: 03/08/22 19:59> Related Data Allergies/Adverse reactions: Allergies Allergy/AdvReac Type Severity Reaction Status Date / Time No Known Allergies Allergy Mild Verified 03/08/22 17:32 <Qiana Crooks PA-C - Last Filed: 03/08/22 19:59> Review of Systems Review of Systems: CONSTITUTIONAL: Reports fever. Denies sweats. ENT: Denies rhinorrhea, congestion, sore throat. CARDIOVASCULAR: Denies chest pain. RESPIRATORY: Denies cough or dyspnea. GASTROINTESTINAL: Reports upper and bilateral lower ABD pain, N/V/D. Denies hematemesis, rectal bleeding, constipation. GENITOURINARY: Denies dysuria or hematuria. MUSCULOSKELETAL: Denies back pain. <Qiaan Crooks PA-C - Last Filed: 03/08/22 19:59> All systems reviewed & are unremarkable except as noted in HPI and below <Qiana Crooks PA-C - Last Filed: 03/08/22 19:59> PMFSH Past Medical History Medical History: Medical History Ovarian cyst Overweight (BMI 25.0-29.9) Vaginal delivery 07/18/20 Full term male 6lbs 9oz <Qiana Crooks PA-C - Last Filed: 03/08/22 19:59> Surgical History Surgical History: Surgical History (Updated 03/08/22 @ 17:42 by Qinaa Crooks PA-C) No pertinent past surgical history <Qiana Crooks PA-C - Last Filed: 03/08/22 19:59> Family History Family History: Family History Grandparent Carcinoma of colon Thyroid disease <Qiana Crooks PA-C - Last Filed: 03/08/22 19:59> Social History Social History: Social History Smoking status: Never smoker Alcohol intake: never Substance use: never Substance use type: does not use Spiritual care concerns: No <Qiana Crooks PA-C - Last Filed: 03/08/22 19:59> Exam Narrative: GENERAL: Well appearing, well-nourished, non-toxic, in no acute distress. HEAD: Normocephalic, atraumatic. NECK: Supple. No adenopathy, no masses. RESPIRATORY: Airway patent, respirations nonlabored. Clear to auscultation bilaterally, no rales, rhonchi, wheezing. CARDIOVASCULAR: Tachycardiac with regular rhythm without murmurs, rubs, or gallops. Peripheral pulses 2+ and equal bilaterally. ABDOMINAL: Soft, mild tenderness in epigastric region and suprapubic region, minimal tenderness in right lower and left lower quadrants, nondistended, no hepatosplenomegaly. Normoactive BS. MUSCULOSKELETAL: Moves all extremities. Strength/ROM intact without gross deformities or TTP. No edema. No calf tenderness. SKIN: Warm, dry, normal color. No rashes. NEURO: A&O X3. Speech clear. Cranial nerves II-XII grossly intact.
[2022-03-08 17:19] LABS: Appearance Urine Clear (Clear); Bilirubin Urine Negative (Negative); Blood Urine Negative (Negative); Color Urine Yellow (Yellow); Glucose Urine UA Negative (Negative); Ketones Urine Negative (Negative); Leukocyte Esterase Ur 1+ LEU/UL (Negative); Nitrate Urine Negative (Negative); Protein Urine Trace mg/dL (Negative); Specific Grav Ur >= 1.030 (1.001-1.035); Urobilinogen Urine 0.2 mg/dL (<2.0)
[2022-03-08] MEDS: SODIUM CHLORIDE 0.9% IV 1,000 ML 999 ML IV CONT (17:28)
[2022-03-08] MEDS: ONDANSETRON INJ 4 MG/2 ML VIAL IV PUSH (17:29)
[2022-03-08] MEDS: KETOROLAC 30 MG/ML VIAL (*BKC) IV PUSH (17:30)
[2022-03-08 17:33] LABS: Add Urine Microscopic? YES
[2022-03-08 17:34] LABS: Mucus Urine Few /lpf; Squamous Epithelial Cell Urine Occasional /hpf (Few); WBC Urine 31-50 /hpf
== END 2022-03-08 19:39 | disposition home or self-care (01) ==
PROVIDERS: Emergency Medicine; Emergency Provider Emergency Medicine
DX: K52.9 Noninfective gastroenteritis and colitis, unspecified (principal); N30.01 Acute cystitis with hematuria; E66.3 Overweight; Z68.30 Body mass index [BMI] 30.0-30.9, adult
CPT/HCPCS: 36415; 74177; 80053; 81001; 81025; 83690; 85025; 87086; 87088; 96361; 96374; 96375; 99284; J1885; J2405; J7030; Q9967